=== PATIENT | female | born 2000 | race Caucasian/White ===

== ENCOUNTER 2021-11-17 15:24 | Emergency (ER) | payer OTHER ==
[~2021-11-17] VITALS: Ht 182.9 cm; Wt 79.0 kg
[2021-11-17] MEDS ORDERED: IBUP-2029 MT (20:49)
[2021-11-17] MEDS ORDERED: METH-653 MT (20:49)
[2021-11-17] MEDS ORDERED: IBUPROFEN 600MG TABLET PO NR (21:00)
[2021-11-17] MEDS ORDERED: METHOCARBAMOL 500MG TABLET PO SCH (22:00)
[2021-11-17 22:20] VITALS: BP 115/66
== END 2021-11-17 22:20 | disposition home or self-care (01) ==
LOC: ER 15:24
DX: M62.838 Other muscle spasm (principal); R51.9 Headache, unspecified; M54.2 Cervicalgia; G89.11 Acute pain due to trauma; V49.49XA Driver injured in collision with other motor vehicles in traffic accident, initial encounter; Y93.89 Activity, other specified; Y92.411 Interstate highway as the place of occurrence of the external cause
CPT/HCPCS: 81025; 99284